=== PATIENT | female | born 2000 ===

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

== ENCOUNTER 2021-05-05 01:30 | Emergency (ER) | payer BC ==
[2021-05-05 01:39] VITALS: BP 117/73
--- NOTE | 2021-05-05 01:50 | ED EENT ---
History of Present Illness General Stated Complaint: LOCKED JAW X 45 MINS Source: patient Exam Limitations: no limitations History of Present Illness Date Seen by Provider: May 05, 2021 Time Seen by Provider: 01:40 Initial Comments 20-year-old female otherwise healthy with no significant past medical history coming in after she was yawning about 45 minutes prior to arrival and her jaw was locked open afterwards. She states this happened in the past and it was difficult to get back. She has mild constant throbbing pain in her jaw from it being left open. She is otherwise denying any other acute complaints. Allergies and Home Medications Allergies Coded Allergies: No Known Drug Allergies (Unverified , 03/14/20) Patient Home Medication List Home Medication List Reviewed: Yes Review of Systems Review of Systems Constitutional: No fever Eyes: Denies Blurred Vision Ears: Denies Dizziness Nose: denies congestion Mouth: denies loose teeth Throat: denies swelling Respiratory: No cough, No short of breath Cardiovascular: No chest pain Gastrointestinal: No abdominal pain, No diarrhea, No nausea, No vomiting Musculoskeletal: No joint pain Skin: No rash Neurological: Denies Anxiety, Denies Depressed Hematologic/Lymphatic: No Symptoms Reported Immunological/Allergic: no symptoms reported All Other Systems Reviewed Negative Unless Noted: Yes Past Ykepsbz-Gztkin-Spdkmm Hx Patient Social History Tobacco Use?: No Physical Exam Height, Weight, BMI Height: '" Weight: lbs. oz. kg; 21.00 BMI Method: General Appearance: WD/WN, no apparent distress Nose: normal inspection Mouth/Throat: other (Mouth locked open with pooling secretions in her mouth, her jaw appears anteriorly dislocated) Neck: non-tender, full range of motion, supple Cardiovascular: regular rate, rhythm, no murmur Respiratory: chest non-tender, lungs clear, normal breath sounds, no resp iratory distress, no accessory muscle use Gastrointestinal: normal bowel sounds, non tender, soft Neurologic/Psychiatric: no motor/sensory deficits, alert, normal mood/affect Skin: normal color, warm/dry Procedures/Interventions Suture Size: 4-0 Progress Anterior jaw dislocation diagnosed clinically. There is no open fracture associated with this. Both of my thumbs were placed into her mouth with gloves onto her molars with my hand going around her jaw and I applied caudal and posterior pressure to reduce her jaw with an audible pop and reduction. She was pain-free immediately with normal range of motion of her jaw. Progress/Results/Core Measures Progress Progress Note : Progress Note 20-year-old female with above history coming in due to an anterior jaw dislocation after yawning. ABCs were intact and vitals were stable on prese ntation. Physical exam with her having an open mandible unable to close it on her own. Clinically with an anterior jaw dislocation which I reduced easily. She is pain-free and back to normal afterwards. She was discharged home in stable condition with strict return precautions. I recommended if this continues that she could follow-up with an oral surgeon. Departure Impression Primary Impression: Jaw dislocation Qualified Codes: S03.00XA - Dislocation of jaw, unspecified side, initial encounter Disposition: HOME, SELF-CARE Condition: Stable Departure-Patient Inst. Decision time for Depature: 01:49 Referrals: NO,LOCAL PHYSICIAN (PCP) Primary Care Physician Add. Discharge Instructions: You are seen in the emergency department for a jaw dislocation. We were able to put it back in place. Take ibuprofen or Tylenol for pain. If this happens again you can either try to put it back in place or come to the emergency department. Please follow-up with an oral surgeon. NGHIA MOJICA MD May 05, 2021 01:49
== END 2021-05-05 01:52 | disposition home or self-care (01) ==
LOC: EDUNIT# 01:30 → ER 01:32
DX: S03.00XA Dislocation of jaw, unspecified side, initial encounter (principal); X58.XXXA Exposure to other specified factors, initial encounter
CPT/HCPCS: 99282